=== PATIENT | female | born 1995 | race Two or more races ===

== ENCOUNTER → 2019-08-27 | Outpatient (CLI) | payer OTHER | LOC: OD 16:54 | PROVIDERS: ATTEND Family Medicine | DX: Z34.90 Encounter for supervision of normal pregnancy, unspecified, unspecified trimester (principal); Z3A.10 10 weeks gestation of pregnancy | CPT/HCPCS: 36415; 84703 ==

== ENCOUNTER 2020-03-29 15:46 | Inpatient (IN) | payer OTHER ==
[2020-03-29 16:43] LABS: BACTERIA (WET MOUNT) 4+ BACTERIA SEEN; EPITHELIALS (WET MOUNT) 3+ EPITHELIALS SEEN; T.VAGINALIS (WET MOUNT) NO TRICHOMONAS SEEN; WBCS (WET MOUNT) 1+ WBCS SEEN; YEAST (WET MOUNT) NO YEAST SEEN
[2020-03-29 16:55] LABS: APPEARANCE,URINE CLEAR; BILIRUBIN,URINE NEGATIVE (NEGATIVE); COLOR,URINE COLORLESS; GLUCOSE, URINE NEGATIVE (NEGATIVE); KETONES,URINE NEGATIVE (NEGATIVE); LEUKOCYTE ESTERASE,URINE NEGATIVE (NEGATIVE); NITRITE,URINE NEGATIVE (NEGATIVE); PROTEIN,URINE NEGATIVE (NEGATIVE); URINE SPECIFIC GRAVITY 1.003; UROBILINOGEN,URINE NEGATIVE mg/dL (<2.0)
[2020-03-29] MEDS ORDERED: OXYTOCIN/0.9 % SODIUM CHLORIDE 30 UNIT/500 ML RTUINJ IV PRN (17:09)
--- NOTE | 2020-03-29 17:18 | Admission Physical ---
Datetime Report Generated by CPN: 03/29/2020 17:18 CURRENT ADMISSION Chief Complaint: Suspected Ruptured Membranes Indication for Induction: Post Dates; PROM Admit Impression : Postterm, Intrauterine ; No Active Labor; Ruptured Membranes Admit Plan: Admit to Unit; Initiate Labor Augmentation Protocol Admit Plan- Other: Possible SROM on Saturday, 3 days ago, clear ALLERGIES Medication Allergies: No Medication Allergies: No Known Allergies (03/29/2020) Latex: No Latex Allergies OBSTETRICAL HISTORY EDC: 03/27/2020 00:00 : 1 Para: 0 Term: 0 : 0 SAB: 0 IAB: 0 [place] PHYSICAL EXAM General: Normal HEENT: Deferred Neurologic: Normal Thyroid: Deferred Heart: Normal Lungs: Normal Breast: Deferred Back: Deferred Abdomen: Normal Genitourinary Exam: Normal Extremities: Normal DTRs: Deferred Pelvic Type: Adequate Vital Signs: Reviewed VAGINAL EXAM Dilatation: 1 Effacement: 70 Station: -1 MEMBRANES Membranes: Ruptured Amniotic Fluid Color: Clear FETUS A EGA: 40.2 Monitoring: External US FHR- Baseline: 125 Variability: Moderate 6-25bpm Accelerations: 15X15 Decelerations: None Presentation: Vertex Admit Comment: sent from [facility] for repeat NST and possible leaking fluid. +ActimProm here. GBS neg No other complications. INFORMED CONSENT Assignment: Kallie Young MD Signature: with User ID: [email or web address] : with User ID: [email or web address]
[2020-03-29 17:40] LABS: HEMATOCRIT 38.1 % (36.0-47.0); MEAN CORPUSCULAR HEMOGLOBIN 30.9 pg (27.0-33.4); MEAN CORPUSCULAR HGB CONC 34.2 g/dL (32.0-36.0); MEAN CORPUSCULAR VOLUME 90 fl (80-97); PLATELET COUNT 217 10^3/uL (150-450); RED BLOOD COUNT 4.21 10^6/uL (3.72-5.28); RED CELL DISTRIBUTION WIDTH 13.1 % (11.5-14.0); WHITE BLOOD COUNT 8.9 10^3/uL (4.0-10.5)
[2020-03-29 17:40] LABS: URINE AMPHETAMINES SCREEN NEGATIVE; URINE BARBITURATES SCREEN NEGATIVE; URINE BENZODIAZEPINES SCREEN NEGATIVE; URINE COCAINE SCREEN NEGATIVE; URINE MARIJUANA (THC) SCREEN NEGATIVE; URINE METHADONE SCREEN NEGATIVE; URINE PHENCYCLIDINE SCREEN NEGATIVE
[2020-03-29] MEDS ORDERED: MISOPROSTOL 0.2 MG TABLET ONE (17:48)
[2020-03-29] MEDS ORDERED: OXYTOCIN 10 UNIT/ML VIAL ONE (17:48)
[2020-03-29] MEDS ORDERED: LIDOCAINE 1% INJ-PF (10 MG/ML) 30 ML SDV ONE (17:48)
[2020-03-29] MEDS ORDERED: OXYTOCIN/0.9 % SODIUM CHLORIDE 30 UNIT/500 ML RTUINJ ONE (17:49)
[2020-03-29] MEDS ORDERED: PENICILLIN G POTASSIUM 5,000,000 UNIT in DEXTROSE 5%-WATER 100 ML IV ONE (18:00)
[2020-03-29] MEDS: RINGERS SOLUTION,LACTATED 1,000 ML IV PRN ×2 (18:10→19:28)
[2020-03-29 18:50] LABS: CHLAM PCR NOT DETECTED (NOT DETECT)
[2020-03-29] MEDS: PENICILLIN G POTASSIUM 2,500,000 UNIT in DEXTROSE 5%-WATER 50 ML IV SCH (21:57)
[2020-03-30] MEDS ORDERED: NALBUPHINE HCL INJ 10 MG/1 ML AMPULE ONE (01:28)
[2020-03-30] MEDS ORDERED: PROMETHAZINE HCL INJ 25 MG/1 ML VIAL ONE (01:28)
[2020-03-30] MEDS ORDERED: NALBUPHINE HCL INJ 10 MG/1 ML AMPULE INJ ONE (02:00)
[2020-03-30] MEDS ORDERED: PROMETHAZINE HCL INJ 25 MG/1 ML VIAL IV ONE (02:00)
[2020-03-30] MEDS: PENICILLIN G POTASSIUM 2,500,000 UNIT in DEXTROSE 5%-WATER 50 ML IV SCH ×2 (02:05→06:13)
[2020-03-30] MEDS ORDERED: PROMETHAZINE HCL 25 MG SUPP.RECT PR PRN (04:53)
[2020-03-30] MEDS ORDERED: MEASLES,MUMPS&RUBELLA VACC/PF 0.5 ML VIAL SUBCUT PRN (04:53)
[2020-03-30] MEDS ORDERED: PROMETHAZINE HCL 25 MG TABLET PO PRN (04:53)
[2020-03-30] MEDS ORDERED: ACETAMINOPHEN 650 MG SUPP.RECT PR PRN (04:53)
[2020-03-30] MEDS ORDERED: MAGNESIUM HYDROXIDE SUSP 30 ML UDCUP PO PRN (04:53)
[2020-03-30] MEDS ORDERED: DIPHENHYDRAMINE HCL 25 MG CAPSULE PO PRN (04:53)
[2020-03-30] MEDS ORDERED: PROMETHAZINE HCL INJ 25 MG/1 ML VIAL IV PRN (04:53)
[2020-03-30] MEDS ORDERED: DIPH/PERTUSS(ACELL)/TETANUS VAC/PF 0.5 ML SYR (>=10YO) IM PRN (04:53)
[2020-03-30] MEDS ORDERED: ZOLPIDEM TARTRATE 5 MG TABLET PO PRN (04:53)
[2020-03-30] MEDS ORDERED: NA PHOS,M-B/NA PHOS,DI-BA (ADULT) 133 ML ENEMA PR PRN (04:53)
[2020-03-30] MEDS ORDERED: BENZOCAINE/MENTHOL AEROSOL SPRAY 56 ML TOP PRN (04:53)
[2020-03-30] MEDS ORDERED: DIBUCAINE 1% OINTMENT 28 GM TP PRN (04:53)
[2020-03-30] MEDS ORDERED: PSEUDOEPHEDRINE HCL 30 MG TABLET PO PRN (04:53)
[2020-03-30] MEDS ORDERED: OXYTOCIN/0.9 % SODIUM CHLORIDE 30 UNIT/500 ML RTUINJ IV PRN (04:53)
[2020-03-30] MEDS ORDERED: ACETAMINOPHEN WITH CODEINE #3 TABLET PO PRN (04:53)
[2020-03-30] MEDS ORDERED: GLYCERIN/WITCH HAZEL LEAF 1 EACH MED..WIPE TP PRN (04:53)
[2020-03-30] MEDS ORDERED: IBUPROFEN 800 MG TABLET ONE (05:45)
[2020-03-30] MEDS: IBUPROFEN 800 MG TABLET PO SCH ×3 (05:46→21:55)
--- NOTE | 2020-03-30 06:10 | Delivery Summary ---
Del Sum A-C Datetime Report Generated by CPN: 03/30/2020 06:09 DELIVERY PERSONNEL DELIVERY PERSONNEL: [id number] Delivery Doctor:: Kallie Young MD Labor and Delivery Nurse:: Charlene Carpio RNhuman resources temp Nurse:: JESUS Rendon Wheel Alignment Mechanic/MANAGER TRANSITION: Eloise Espinosa, RETAIL COORDINATOR MATERNAL INFORMATION Delivery Anesthesia: None Medications After Delivery: Pitocin 30 Units in 500ml NS/D5W Estimated Blood Loss (ml): 150 Delivery QBL: 150 Maternal Complications: Other Complication Details: prom LABOR SUMMARY EDC: 03/27/2020 00:00 No. Babies in Womb: 1 Attempted: Yes Labor Anesthesia: None LABOR INFORMATION Reason for Induction: Not Applicable Onset of Labor: 03/30/2020 02:00 Complete Dilatation: 03/30/2020 03:43 Oxytocin: Augmentation Group B Beta Strep: Negative Antibiotics # of Doses: 3 Antibiotics Time of Last Dose: 0200 Name of Antibiotic Given: Pencillin Steroids Given: None Reason Steroids Not Administered: Not Applicable MEMBRANES Membranes Rupture Method: Spontaneous Rupture of Membranes: 03/26/2020 12:00 Length of Rupture (hr): 88.55 Amniotic Fluid Color: Particulate Meconium Amniotic Fluid Amount: Small Amniotic Fluid Odor: None STAGES OF LABOR Stage 1 hr: 1 Stage 1 min: 43 Stage 2 hr: 0 Stage 2 min: 50 Stage 3 hr: 0 Stage 3 min: 4 Total Time in Labor hr: 2 Total Time in Labor min: 37 VAGINAL DELIVERY Episiotomy: None Laceration #1: Perineal; Vaginal Laceration Extension #1: Second Degree Laceration Repair: Yes Laceration Repair Note: 2-0 chromic repair in normal fashion Sponge Count Correct: Yes Sharps Count Correct: Yes CSECTION DELIVERY Primary Indication: N/A Secondary Indication: N/A CSection Incidence: N/A Labor: N/A Elective: N/A CSection Incision: N/A BABY A INFORMATION Delivery Date/Time: 03/30/2020 04:33 Method of Delivery: Vaginal Nurse Controlled Delivery: No Born in Route : No : N/A Forceps: N/A Vacuum Extraction: N/A Shoulder Dystocia : No PRESENTATION/POSITION BABY A Presentation: Cephalic Cephalic Presentation: Vertex Vertex Position: Left Occipital Anterior Breech Presentation: N/A PLACENTA INFORMATION BABY A Placenta Delivery Time : 03/30/2020 04:37 Placenta Method of Delivery: Spontaneous Placenta Status: Delivered SCORES BABY A Heart Rate 1 min: >100 bpm Resp Effort 1 min: Good Cry Reflex Irritability 1 min: Cough or Sneeze or Pulls Away Muscle Tone 1 min: Active Motion Color 1 min: Body [place], Extremities Blue Resuscitation Effort 1 min: Tactile Stimulation SCORE 1 MIN: 9 Heart Rate 5 min: >100 bpm Resp Effort 5 min: Good Cry Reflex Irritability 5 min: Cough or Sneeze or Pulls Away Muscle Tone 5 min: Active Motion Color 5 min: Body [place], Extremities Blue Resuscitation Effort 5 min: Tactile Stimulation SCORE 5 MIN: 9 INFANT INFORMATION BABY A Gestational Age at Delivery: 40.3 Gestational Status: Full Term- 39- 40.6 Weeks Infant Outcome : Liveborn Condition : Stable Sex: Female IDENTIFICATION BABY A Infant Verification Date/Time: 03/30/2020 04:45 ID Band Number: [id number] Mother's Name Verified: Yes RN Verifying Infant: [place] Marie, JUANITO Additional Verifying Personnel: Arnol Marcos, JUANITOC WEIGHT/LENGTH BABY A Birthweight (gm): 2812 Weight (lb): 6 Infant Weight (oz): 3 Length (in): 19.50 Infant Length (cm): 49.53 CORD INFORMATION BABY A No. Cord Vessels: 3 Nuchal Cord : N/A Cord Blood Taken: Yes-For Eval (Mom's Blood Type - or O+) Infant Suction: None ASSESSMENT BABY A Complications: None Physical Findings at Delivery: Within Normal Limits Infant Respirations: Appears Normal Skin to Skin: Yes Skin to Skin Time (min): 60 Wool Supplier/ALS Called : No Infant Care By: D Bellavance RN Transferred To: Remains with Mother BABY B INFORMATION : N/A SIGNATURES Signature: with User ID: [email or web address] : I was personally available for consultation and serving as supervising physician for the MLP.
[2020-03-30] MEDS ORDERED: PRENATAL VITAMIN W DHA CAPSULE PO ONE (09:57)
[2020-03-30] MEDS ORDERED: SENNOSIDES/DOCUSATE 8.6-50 MG 1 EACH TABLET ONE (09:58)
[2020-03-30] MEDS ORDERED: FERROUS SULFATE 325 MG TABLET PO ONE (09:58)
[2020-03-30] MEDS ORDERED: DOCUSATE SODIUM 100 MG CAPSULE ONE (09:58)
[2020-03-30] MEDS ORDERED: FAMOTIDINE 20 MG TABLET ONE (09:58)
[2020-03-30] MEDS: FERROUS SULFATE 325 MG TABLET PO SCH ×2 (10:04→19:26)
[2020-03-30] MEDS: PRENATAL VITAMIN W DHA CAPSULE PO SCH (10:04)
[2020-03-30] MEDS: FAMOTIDINE 20 MG TABLET PO SCH ×2 (10:04→21:55)
[2020-03-30] MEDS: DOCUSATE SODIUM 100 MG CAPSULE PO SCH ×2 (10:04→19:26)
[2020-03-30] MEDS: SENNOSIDES/DOCUSATE 8.6-50 MG 1 EACH TABLET PO SCH (10:04)
[2020-03-30 11:03] LABS: ABSOLUTE LYMPHOCYTES (AUTO) 0.9 10^3/uL (0.5-4.7); ABSOLUTE MONOCYTES (AUTO) 0.9 10^3/uL (0.1-1.4); BASOPHILS % (AUTO) 0.1 % (0-2); HEMOGLOBIN 11.9 g/dL (12.0-15.5); LYMPHOCYTES % (AUTO) 5.7 % (13-45); MEAN CORPUSCULAR HEMOGLOBIN 30.6 pg (27.0-33.4); MEAN CORPUSCULAR HGB CONC 33.9 g/dL (32.0-36.0); MEAN CORPUSCULAR VOLUME 90 fl (80-97); MONOCYTES % (AUTO) 5.6 % (3-13); PLATELET COUNT 203 10^3/uL (150-450); RED BLOOD COUNT 3.89 10^6/uL (3.72-5.28); RED CELL DISTRIBUTION WIDTH 13.1 % (11.5-14.0); SEGMENTED NEUTROPHILS % (AUTO) 88.6 % (42-78); TOTAL CELLS COUNTED % (AUTO) 100 %; WHITE BLOOD COUNT 15.8 10^3/uL (4.0-10.5)
[2020-03-31] MEDS: ACETAMINOPHEN WITH CODEINE #3 TABLET PO PRN ×2 (00:28→18:00)
[2020-03-31] MEDS: IBUPROFEN 800 MG TABLET PO SCH ×3 (05:15→22:14)
[2020-03-31 07:03] LABS: HEMATOCRIT 27.7 % (36.0-47.0); MEAN CORPUSCULAR HGB CONC 34.1 g/dL (32.0-36.0); MEAN CORPUSCULAR VOLUME 91 fl (80-97); PLATELET COUNT 164 10^3/uL (150-450); RED BLOOD COUNT 3.05 10^6/uL (3.72-5.28); RED CELL DISTRIBUTION WIDTH 13.5 % (11.5-14.0); WHITE BLOOD COUNT 9.7 10^3/uL (4.0-10.5)
[2020-03-31 07:12] LABS: HEMOGLOBIN 9.5 g/dL (12.0-15.5)
[2020-03-31] MEDS: FAMOTIDINE 20 MG TABLET PO SCH ×2 (10:56→22:14)
[2020-03-31] MEDS: PRENATAL VITAMIN W DHA CAPSULE PO SCH (10:56)
[2020-03-31] MEDS: SENNOSIDES/DOCUSATE 8.6-50 MG 1 EACH TABLET PO SCH (10:56)
[2020-03-31] MEDS: FERROUS SULFATE 325 MG TABLET PO SCH ×2 (10:56→17:43)
[2020-03-31] MEDS: DOCUSATE SODIUM 100 MG CAPSULE PO SCH ×2 (10:57→17:43)
--- NOTE | 2020-03-31 11:16 | PDOC PROGRESS REPORT ---
Subjective-OB Progress Note for:: 03/31/20 Subjective: Pt resting quietly, at bedside. Bleeding is light, reg diet and voiding without difficulty. Physical Exam (OB) Vital Signs: Temp Pulse Resp BP Pulse Ox 97.9 F 75 16 113/58 L 99 03/31/20 07:46 03/31/20 07:46 03/31/20 07:46 03/31/20 07:46 03/31/20 07:46 Intake & Output 03/30/20 03/31/20 04/01/20 06:59 06:59 06:59 Intake Total 163 480 600 Output Total 1000 600 Balance 163 -520 0 Weight 60.6 kg - PIH/Pre-Eclampsia DTR's: 2 + Clonus: Negative Headache: Absent Epigastric Pain: No Visual Changes: No - Lochia Lochia Amount: Scant < 10 ml Lochia Color: Rubra/Red - Abdomen Description: Tender, Soft Hernia Present: No Fundal Description: Firm Fundal Height: u/u - u/2 Objective-Diagnostic Laboratory: 03/31/20 06:33 03/31/20 06:33 WBC 9.7 RBC 3.05 L Hgb 9.5 L D Hct 27.7 L MCV 91 MCH 31.0 MCHC 34.1 RDW 13.5 Plt Count 164 Assessment and Plan(PN) - Assessment and Plan (1) Obstetrical laceration, second degree Is this a current diagnosis for this admission?: Yes (2) Urinary retention Is this a current diagnosis for this admission?: Yes (3) Vaginal delivery Is this a current diagnosis for this admission?: Yes - Time Spent with Patient Time with patient: Less than 15 minutes Medications reviewed and adjusted accordingly: Yes - Disposition Anticipated Discharge: Home Within: within 24 hours
[2020-04-01] MEDS: IBUPROFEN 800 MG TABLET PO SCH ×2 (05:34→14:39)
[2020-04-01 08:08] VITALS: BP 116/58
--- NOTE | 2020-04-01 09:46 | PDOC PROGRESS REPORT ---
Subjective-OB Progress Note for:: 04/01/20 Subjective: Doing well, no c/o, hsb at BS, aware she will go home tomorrow, voiding, walking Physical Exam (OB) Vital Signs: Temp Pulse Resp BP Pulse Ox 98.0 F 73 16 116/58 L 100 04/01/20 07:46 04/01/20 07:46 04/01/20 07:46 04/01/20 07:46 04/01/20 07:46 Intake & Output 03/31/20 04/01/20 04/02/20 06:59 06:59 06:59 Intake Total 480 600 Output Total 1000 2650 Balance -520 -2049 - PIH/Pre-Eclampsia DTR's: 2 + Clonus: Negative Headache: Absent Epigastric Pain: No Visual Changes: No - Lochia Lochia Amount: Scant < 10 ml Lochia Color: Rubra/Red - Abdomen Description: Firm Hernia Present: No Fundal Description: Firm, Midline Fundal Height: u/u - u/2 Objective-Diagnostic Laboratory: 03/31/20 06:33 Assessment and Plan(PN) - Assessment and Plan (1) Obstetrical laceration, second degree Is this a current diagnosis for this admission?: Yes (2) Vaginal delivery Is this a current diagnosis for this admission?: Yes (3) Hematoma of urethra Qualifiers: Encounter type: initial encounter Qualified Code(s): S37.32XA - Contusion of urethra, initial encounter Is this a current diagnosis for this admission?: Yes (4) Urinary retention Is this a current diagnosis for this admission?: Yes - Time Spent with Patient Time with patient: Less than 15 minutes Medications reviewed and adjusted accordingly: Yes - Disposition Anticipated Discharge: Home Within: within 24 hours
--- NOTE | 2020-04-01 09:55 | PDOC DISCHARGE SUMMARY ---
Impression - Admit/DC Date/PCP Admission Date/Primary Care Provider: 03/29/20 17:06 ULYSSES MARCH MD Discharge Date: 04/01/20 - Discharge Diagnosis (1) Obstetrical laceration, second degree Is this a current diagnosis for this admission?: Yes (2) Vaginal delivery Is this a current diagnosis for this admission?: Yes (3) Hematoma of urethra Is this a current diagnosis for this admission?: Yes (4) Urinary retention Is this a current diagnosis for this admission?: Yes - Additional Information Resuscitation Status: Full Code Discharge Diet: As Tolerated, Regular Discharge Activity: Activity As Tolerated, Pelvic Rest Referrals: ULYSSES MARCH MD [Primary Care Provider] - (2 weeks) Home Medications: Prenat 115/Iron Fum/Folic/Dss [ 19 Tablet] 1 tab PO DAILY 03/29/20 Dibucaine 1% Ointment [Nupercainal 1% Oint 28 gm] 1 applic TP PRN PRN tube 04/01/20 Docusate Sodium [Colace 100 mg Capsule] 100 mg PO BID capsule 04/01/20 HPI Gestational Age: 40.3 Reason(s) for Admission: PROM Admission Note: augmentation with Pitocin Procedures: NST, Ultrasound Intrapartum Procedure(s): Spontaneous Vaginal Delivery Complication(s): Laceration-Vaginal Laceration-Degree: 2nd Hospital Course Hospital Course: routine, clay x 2 days Results Laboratory Results: WBC 9.7 10^3/uL (4.0-10.5) 03/31/20 06:33 RBC 3.05 10^6/uL (3.72-5.28) L 03/31/20 06:33 Hgb 9.5 g/dL (12.0-15.5) L D 03/31/20 06:33 Hct 27.7 % (36.0-47.0) L 03/31/20 06:33 MCV 91 fl (80-97) 03/31/20 06:33 MCH 31.0 pg (27.0-33.4) 03/31/20 06:33 MCHC 34.1 g/dL (32.0-36.0) 03/31/20 06:33 RDW 13.5 % (11.5-14.0) 03/31/20 06:33 Plt Count 164 10^3/uL (150-450) 03/31/20 06:33 Lymph % (Auto) 5.7 % (13-45) L 03/30/20 10:38 [place] % (Auto) 5.6 % (3-13) 03/30/20 10:38 Eos % (Auto) 0.0 % (0-6) 03/30/20 10:38 Baso % (Auto) 0.1 % (0-2) 03/30/20 10:38 Absolute Neuts (auto) 14.0 10^3/uL (1.7-8.2) H 03/30/20 10:38 Absolute Lymphs (auto) 0.9 10^3/uL (0.5-4.7) 03/30/20 10:38 Absolute Monos (auto) 0.9 10^3/uL (0.1-1.4) 03/30/20 10:38 Absolute Eos (auto) 0.0 10^3/uL (0.0-0.6) 03/30/20 10:38 Absolute Basos (auto) 0.0 10^3/uL (0.0-0.2) 03/30/20 10:38 Seg Neutrophils % 88.6 % (42-78) H 03/30/20 10:38 Urine Color COLORLESS 03/29/20 16:15 Urine Appearance CLEAR 03/29/20 16:15 Urine pH 7.0 (5.0-9.0) 03/29/20 16:15 Ur Specific [place] 1.003 03/29/20 16:15 Urine Protein NEGATIVE mg/dL (NEGATIVE) 03/29/20 16:15 Urine Glucose (UA) NEGATIVE mg/dL (NEGATIVE) 03/29/20 16:15 Urine Ketones NEGATIVE mg/dL (NEGATIVE) 03/29/20 16:15 Urine Blood NEGATIVE (NEGATIVE) 03/29/20 16:15 Urine Nitrite NEGATIVE (NEGATIVE) 03/29/20 16:15 Urine Bilirubin NEGATIVE (NEGATIVE) 03/29/20 16:15 Urine Urobilinogen NEGATIVE mg/dL (<2.0) 03/29/20 16:15 Ur Leukocyte Esterase NEGATIVE (NEGATIVE) 03/29/20 16:15 Urine Ascorbic Acid NEGATIVE (NEGATIVE) 03/29/20 16:15 Membranes Rupture POSITIVE (NEGATIVE) H 03/29/20 16:06 Epi Cells (Wet Prep) 3+ EPITHELIALS SEEN 03/29/20 16:15 Bacteria (Wet Prep) 4+ BACTERIA SEEN 03/29/20 16:15 Trichomonas (Wet Prep) NO TRICHOMONAS SEEN 03/29/20 16:15 Vaginal WBC 1+ WBCS SEEN 03/29/20 16:15 Vaginal Yeast NO YEAST SEEN 03/29/20 16:15 Urine Opiates Screen NEGATIVE 03/29/20 16:15 Urine Methadone Screen NEGATIVE 03/29/20 16:15 Ur Barbiturates Screen NEGATIVE 03/29/20 16:15 Ur Phencyclidine Scrn NEGATIVE 03/29/20 16:15 Ur Amphetamines Screen NEGATIVE 03/29/20 16:15 U Benzodiazepines Scrn NEGATIVE 03/29/20 16:15 Urine Cocaine Screen NEGATIVE 03/29/20 16:15 U Marijuana (THC) Screen NEGATIVE 03/29/20 16:15 RPR NONREACTIVE (NONREACTIVE) 03/29/20 17:13 Chlamydia DNA (PCR) NOT DETECTED (NOT DETECT) 03/29/20 16:15 N.gonorrhoeae DNA (PCR) NOT DETECTED (NOT DETECT) 03/29/20 16:15 Blood Type O POSITIVE 03/29/20 17:13 Antibody Screen NEGATIVE 03/29/20 17:13 Plan Health Concerns: voiding Plan of Treatment: discharge home after voiding, increase water Goals: no urinary retention Time Spent: Less than 30 Minutes
[2020-04-01] MEDS: PRENATAL VITAMIN W DHA CAPSULE PO SCH (11:02)
[2020-04-01] MEDS: FAMOTIDINE 20 MG TABLET PO SCH (11:02)
[2020-04-01] MEDS: FERROUS SULFATE 325 MG TABLET PO SCH ×2 (11:03→17:08)
[2020-04-01] MEDS: DOCUSATE SODIUM 100 MG CAPSULE PO SCH ×2 (11:03→17:08)
[2020-04-01] MEDS: SENNOSIDES/DOCUSATE 8.6-50 MG 1 EACH TABLET PO SCH (11:03)
== END 2020-04-01 17:31 | disposition home or self-care (01) | DRG 806 ==
LOC: LC 15:46 → LR 17:06 → 2S 03-30 10:42
PROVIDERS: ADMIT Obstetrics & Gynecology; ATTEND Obstetrics & Gynecology
PROC: 10E0XZZ Delivery of Products of Conception, External Approach (ICD-10-PCS; principal; 2020-03-30)
PROC: 0KQM0ZZ Repair Perineum Muscle, Open Approach (ICD-10-PCS; 2020-03-30)
DX: O48.0 Post-term pregnancy (principal); O71.7 Obstetric hematoma of pelvis; Z37.0 Single live birth; O42.92 Full-term premature rupture of membranes, unspecified as to length of time between rupture and onset of labor; O77.0 Labor and delivery complicated by meconium in amniotic fluid; O99.89 Other specified diseases and conditions complicating pregnancy, childbirth and the puerperium; R33.8 Other retention of urine; Z3A.40 40 weeks gestation of pregnancy
CPT/HCPCS: 36415; 80307; 81005; 84112; 85025; 85027; 86592; 86850; 86900; 86901; 87210; 87491; 87591; J2300; J2540; J2550; J2590; J3490; J7060